=== PATIENT | female | born 1985 | race Two or more races ===

== ENCOUNTER 2018-07-08 20:10 | Emergency (ER) | payer BC ==
[~2018-07-08] VITALS: Ht 170.2 cm; Wt 88.5 kg
--- NOTE | 2018-07-08 20:30 | NUR ---
Pt came to emergency dept. complaining of feeling, "dehydrated." Pt denies any nausea, vomitting, or diarrhea. Pt states she is 27 weeks . Pt AAXO4. Respirations even and unlabored. Pt ambulated to bed 10. Pt put on the monitor and pending eval from ER MD.
--- NOTE | 2018-07-08 20:45 | NUR ---
Pt ambulated to bathroom and urine same obtained. Endoscope Technician at bedside. Labs sent.
[2018-07-08] MEDS ORDERED: IV NS 0.9% 1,000 ML BAG IV ONE (21:00)
[2018-07-08 21:04] LABS: APPEARANCE,URINE Slightly Cloudy (CLEAR); BASOPHILS # (AUTO) 0.1 /CMM (0.0-0.2); BILIRUBIN,URINE Negative (NEGATIVE); BLOOD, URINE Negative Ery/uL (NEGATIVE); COLOR,URINE Yellow (YELLOW); EOSINOPHILS % (AUTO) 0.9 % (0.0-6.0); HEMATOCRIT 36 % (33-45); HEMOGLOBIN 11.7 g/dL (11.5-14.8); KETONES,URINE Trace (NEGATIVE); LEUKOCYTE ESTERASE ,URINE Trace (NEGATIVE); LYMPHOCYTES # (AUTO) 1.9 /CMM (0.8-4.8); LYMPHOCYTES % (AUTO) 22.4 % (20.0-44.0); MEAN CORPUSCULAR HGB CONC 33 g/dl (31.0-36.0); MEAN CORPUSCULAR VOLUME 79 fL (82-100); MONOCYTES # (AUTO) 0.8 /CMM (0.1-1.30); MONOCYTES % (AUTO) 8.9 % (2.0-12.0); NEUTROPHILS # (AUTO) 5.8 /CMM (1.8-8.9); NEUTROPHILS % (AUTO) 66.8 % (43.0-81.0); NITRITE, URINE Negative (NEGATIVE); PLATELET COUNT (AUTO) 219 /CMM (150-450); PROTEIN,URINE Negative (NEGATIVE); RED BLOOD CELL COUNT(AUTO) 4.56 MIL/uL (4.0-5.2); UGLUCOSE Negative (NEGATIVE); UROBILINOGEN,URINE 0.2 EU/dL (0.2); WHITE BLOOD COUNT (AUTO) 8.7 K/uL (4.3-11.0)
[2018-07-08 21:11] LABS: CALCIUM, SERUM 8.5 mg/dL (8.5-10.1); CREATININE 0.7 mg/dL (0.6-1.3); POTASSIUM 3.8 mmol/L (3.5-5.1)
[2018-07-08 21:18] LABS: ALBUMIN 3.1 g/dL (3.4-5.0); BILIRUBIN,DIRECT 0.1 mg/dL (0.0-0.2); BILIRUBIN,TOTAL 0.2 mg/dL (0.2-1.0)
[2018-07-08 21:19] LABS: RBC,URINE 0-2 /HPF (0-2)
[2018-07-08 21:20] LABS: BACTERIA,URINE Few /HPF (None Seen); SQUAMOUS EPITHELIAL CELL,UR Moderate /HPF (None Seen)
[2018-07-08 22:24] VITALS: BP 106/74
--- NOTE | 2018-07-08 22:25 | NUR ---
Patient discharged to home in stable condition. Written and verbal after care instructions given. Patient verbalizes understanding of instruction. IV removed. Catheter intact and site benign. Pressure and 4x4 applied to site. No bleeding noted. Pt ambulatory w/ steady gait, resp even & unlabored, denies any pain, no N/V w/ no acute distress noted.
== END 2018-07-08 22:25 | disposition home or self-care (01) ==
LOC: ER 20:13
DX: O23.41 Unspecified infection of urinary tract in pregnancy, first trimester (principal); E86.0 Dehydration; Z3A.12 12 weeks gestation of pregnancy; Z86.19 Personal history of other infectious and parasitic diseases; Z60.2 Problems related to living alone
CPT/HCPCS: 36415; 80048; 80076; 81001; 84702; 85025; 87804 ×2; 96360; 99283; A4606; J7030; 81000-TC; 87400

== ENCOUNTER 2018-07-14 15:09 | Emergency (ER) | payer BC ==
[~2018-07-14] VITALS: Ht 170.2 cm; Wt 87.5 kg
[2018-07-14 15:22] VITALS: BP 124/72
--- NOTE | 2018-07-14 15:23 | NUR ---
PT BIB SELF C/O "I'M FEELING DEHYDRATED AGAIN" FELT LIKE SHE WAS GOING TO "PASS OUT", PT IS AAOX4, NOT IN RESPIRATORY DISTRESS, V/S STABLE, KEPT RESTED AND COMFORTABLE, AWAITING ER MD FOR EVAL.
--- NOTE | 2018-07-14 15:30 | NUR ---
SEEN AND EXAMINED BY SANTOS ZAMBRANO
[2018-07-14] MEDS ORDERED: IV NS 0.9% 1,000 ML BAG IV ONE (16:00)
--- NOTE | 2018-07-14 16:07 | NUR ---
URINE SPECIMEN COLLECTED AND SENT TO LAB.
[2018-07-14 16:10] LABS: APPEARANCE,URINE Clear (CLEAR); BILIRUBIN,URINE Negative (NEGATIVE); BLOOD, URINE Negative Ery/uL (NEGATIVE); COLOR,URINE Yellow (YELLOW); KETONES,URINE Trace (NEGATIVE); LEUKOCYTE ESTERASE ,URINE Trace (NEGATIVE); NITRITE, URINE Negative (NEGATIVE); PH,URINE 5.5 (5.0-8.0); PROTEIN,URINE Trace mg/dl (NEGATIVE); UGLUCOSE Negative (NEGATIVE); UROBILINOGEN,URINE 0.2 EU/dL (0.2)
[2018-07-14 16:39] LABS: BACTERIA,URINE Few /HPF (None Seen); CALCIUM OXALATE CRYSTALS,UR Few /HPF (None Seen); RBC,URINE 0-2 /HPF (0-2); SQUAMOUS EPITHELIAL CELL,UR Few /HPF (None Seen)
--- NOTE | 2018-07-14 16:49 | NUR ---
Patient discharged to home in stable condition. Written and verbal after care instructions given. Patient verbalizes understanding of instruction.
== END 2018-07-14 16:51 | disposition home or self-care (01) ==
LOC: ER 15:12
DX: O26.891 Other specified pregnancy related conditions, first trimester (principal); E86.0 Dehydration; Z86.19 Personal history of other infectious and parasitic diseases; Z60.2 Problems related to living alone; Z3A.13 13 weeks gestation of pregnancy
CPT/HCPCS: 81000-TC; 87086-TC; J7030

== ENCOUNTER 2020-01-26 21:13 | Emergency (ER) | payer BC ==
[~2020-01-26] VITALS: Ht 167.6 cm; Wt 90.7 kg
[2020-01-26 21:24] VITALS: BP 98/57
[2020-01-26] MEDS ORDERED: ACETAMINOPHEN ES 500 MG TABLET ONE (23:00)
[2020-01-26] MEDS ORDERED: ACETAMINOPHEN ES 500 MG TABLET PO ONE (23:00)
--- NOTE | 2020-01-26 23:11 | NUR ---
Patient discharged to home in stable condition. Written and verbal after care instructions given. Patient verbalizes understanding of instruction. Pt ambulatory with a steady gait
--- NOTE | 2020-01-27 09:15 | NUR ---
PATIENT CALLED AND INFORMED OF RESULT AND TO FOLLOW CDC GUIDELINES
== END 2020-01-26 23:13 | disposition home or self-care (01) ==
LOC: ER 21:18
DX: U07.1 COVID-19 (principal); R51 Headache; Z86.19 Personal history of other infectious and parasitic diseases
CPT/HCPCS: 71045; 99284; C9803; U0003

== ENCOUNTER 2020-05-16 14:03 | Emergency (ER) | payer SELFPAY ==
[~2020-05-16] VITALS: Ht 167.6 cm; Wt 91.6 kg
[2020-05-16 14:12] VITALS: BP 116/62
--- NOTE | 2020-05-16 16:32 | NUR ---
Patient discharged to home in stable condition. Written and verbal after care instructions given. Patient verbalizes understanding of instruction.
== END 2020-05-16 16:32 | disposition home or self-care (01) ==
LOC: ER 14:04
DX: M54.2 Cervicalgia (principal); R07.89 Other chest pain; M54.5 Low back pain; Z98.890 Other specified postprocedural states; Z60.2 Problems related to living alone; V49.59XA Passenger injured in collision with other motor vehicles in traffic accident, initial encounter; Y93.89 Activity, other specified; Y92.413 State road as the place of occurrence of the external cause; Y99.8 Other external cause status
CPT/HCPCS: 71045-TC; 72074-TC; 72100-TC; 72125-TC

== ENCOUNTER 2020-07-04 09:05 | Emergency (ER) | payer BC, MEDICAID ==
[~2020-07-04] VITALS: Ht 170.2 cm; Wt 91.6 kg
[2020-07-04 09:05] VITALS: BP 127/82
== END 2020-07-04 10:18 | disposition home or self-care (01) ==
LOC: ER 09:07
DX: R07.89 Other chest pain (principal); Z60.2 Problems related to living alone
CPT/HCPCS: 71100-TC

== ENCOUNTER 2020-09-13 23:24 | Emergency (ER) | payer BC, OTHER ==
[~2020-09-13] VITALS: Ht 170.2 cm; Wt 91.6 kg
[2020-09-13 23:25] VITALS: BP 122/68
--- NOTE | 2020-09-14 00:02 | NUR ---
RADIOLOGY AT BEDSIDE FOR XRAY
[2020-09-14] MEDS ORDERED: IBUP-1957 PO (00:21)
--- NOTE | 2020-09-14 00:26 | NUR ---
Patient discharged to home in stable condition. Written and verbal after care instructions given. Patient verbalizes understanding of instruction.
== END 2020-09-14 00:28 | disposition home or self-care (01) ==
LOC: ER 23:27
DX: S63.591A Other specified sprain of right wrist, initial encounter (principal); W01.0XXA Fall on same level from slipping, tripping and stumbling without subsequent striking against object, initial encounter; Y93.89 Activity, other specified; Y92.89 Other specified places as the place of occurrence of the external cause; Y99.8 Other external cause status
CPT/HCPCS: 73110

== ENCOUNTER 2021-09-04 20:47 | Emergency (ER) | payer OTHER ==
[~2021-09-04] VITALS: Ht 170.2 cm; Wt 85.7 kg
[~2021-09-04 20:47] MED LIST: IBUP-1957 PO
--- NOTE | 2021-09-04 21:14 | NUR ---
BIBSELF C/O RIGHT SIDED ABD PAIN RAD TO RIGHT FLANK AREA SINCE THE AM . PT A/OX4. TOLERATING R/A WELL WITH NO SOB. CONNECTED PT TO POX AND MONITOR
--- NOTE | 2021-09-04 21:15 | NUR ---
URINE COLLECTED AND SENT TO LAB
[2021-09-04] MEDS ORDERED: KETOROLAC TROMETHAMINE 15 MG/ML VIAL ONE (21:44)
[2021-09-04] MEDS ORDERED: MAG HYDROX/AL HYDROX/SIMETH 30 ML UDC ONE (21:44)
[2021-09-04] MEDS ORDERED: ONDANSETRON HCL/PF 4 MG/2 ML VIAL ONE (21:44)
[2021-09-04] MEDS ORDERED: FAMOTIDINE/PF INJ 20 MG/2 ML VIAL IV ONE ×2 (21:44→22:00)
[2021-09-04] MEDS ORDERED: MAG HYDROX/AL HYDROX/SIMETH 30 ML UDC PO ONE (22:00)
[2021-09-04] MEDS ORDERED: KETOROLAC TROMETHAMINE INJ 30 MG/ML VIAL IV ONE (22:00)
[2021-09-04] MEDS ORDERED: ONDANSETRON HCL/PF 4 MG/2 ML VIAL IVP ONE (22:00)
[2021-09-04] MEDS ORDERED: IV NS 0.9% 1,000 ML BAG IV ONE (22:00)
--- NOTE | 2021-09-04 22:05 | NUR ---
RAC #20G S/L ; BLOOD COLLECTED AND SENT TO LAB
[2021-09-04 22:07] LABS: BASOPHILS % (AUTO) 0.3 % (0.0-2.0); EOSINOPHILS % (AUTO) 0.1 % (0.0-6.0); HEMATOCRIT 40 % (33-45); HEMOGLOBIN 12.8 g/dL (11.5-14.8); LYMPHOCYTES # (AUTO) 0.1 K/uL (0.8-4.8); LYMPHOCYTES % (AUTO) 1.7 % (20.0-44.0); MEAN CORPUSCULAR HGB CONC 32 g/dl (31.0-36.0); MEAN CORPUSCULAR VOLUME 82 fL (82-100); MONOCYTES # (AUTO) 0.5 K/uL (0.1-1.30); MONOCYTES % (AUTO) 9.2 % (2.0-12.0); NEUTROPHILS # (AUTO) 4.4 K/uL (1.8-8.9); NEUTROPHILS % (AUTO) 88.7 % (43.0-81.0); PLATELET COUNT (AUTO) 137 K/uL (150-450); RED BLOOD CELL COUNT(AUTO) 4.86 MIL/uL (4.0-5.2)
[2021-09-04 22:08] LABS: BILIRUBIN,URINE NEGATIVE (NEGATIVE); COLOR,URINE YELLOW (YELLOW); LEUKOCYTE ESTERASE ,URINE SMALL (NEGATIVE); NITRITE, URINE NEGATIVE (NEGATIVE); PROTEIN,URINE TRACE mg/dl (NEGATIVE); UGLUCOSE NEGATIVE (NEGATIVE); UROBILINOGEN,URINE 0.2 EU/dL (0.2)
[2021-09-04 22:12] LABS: BACTERIA,URINE 1+ /HPF (None Seen); RBC,URINE NONE SEEN /HPF (0-2); SQUAMOUS EPITHELIAL CELL,UR Few /HPF (None Seen)
--- NOTE | 2021-09-04 22:40 | NUR ---
PT TAKEN TO CT VIA KRISTOPHER
--- NOTE | 2021-09-04 22:49 | NUR ---
PT RETURNED TO ER BED [address]
--- NOTE | 2021-09-04 23:00 | NUR ---
US TECH AT PT'S BEDSIDE
[2021-09-04 23:32] LABS: ALBUMIN 3.4 g/dL (3.4-5.0); BILIRUBIN,DIRECT 0.2 mg/dL (0.0-0.2); BILIRUBIN,TOTAL 0.7 mg/dL (0.2-1.0); CALCIUM, SERUM 8.2 mg/dL (8.5-10.1); CREATININE 0.9 mg/dL (0.6-1.3); POTASSIUM 3.4 mmol/L (3.5-5.1); TOTAL PROTEIN, SERUM 6.7 g/dL (6.4-8.2)
--- NOTE | 2021-09-04 23:37 | NUR ---
CALLED HECTOR FOR IMAGING READ
[2021-09-05] MEDS ORDERED: CEFOXITIN 2 G in IV NS 0.9% 100 ML IV SCH (00:30)
--- NOTE | 2021-09-05 00:30 | NUR ---
COVID ANTIGEN SWAB COLLECTED AND SENT TO LAB
--- NOTE | 2021-09-05 00:40 | NUR ---
YOUTH SPECIALIST AT PT'S BEDSIDE
[2021-09-05] MEDS ORDERED: CEFOXITIN 1 G VIAL ONE ×2 (00:45→00:46)
--- NOTE | 2021-09-05 02:20 | NUR ---
CLINICALS GIVEN TO SHIRA PROMOTIONS ASSOCIATE, OVER THE PHONE
--- NOTE | 2021-09-05 02:54 | NUR ---
100.1 TEMP NOTED, MADE AWARE
--- NOTE | 2021-09-05 02:59 | NUR ---
CLINICALS FAXED TO SHIRA TESTING DIRECTOR
--- NOTE | 2021-09-05 03:59 | NUR ---
SHIRA'S FAX NUMBER: [phone]
--- NOTE | 2021-09-05 04:52 | NUR ---
CEFOXITIN 2MG NOT AVAILABLE AT THIS TIME. WILL F/U WITH PHARMACY IN THE MORNING
--- NOTE | 2021-09-05 05:12 | NUR ---
PER DENZEL AT TRANSFER CENTER, PATIENT IS ACCEPTED AT [facility] BY GILDA GROVES. # FOR REPORT: [phone] DENZEL'S PHONE NUMBER: [phone]
[2021-09-05 05:26] VITALS: BP 106/64
--- NOTE | 2021-09-05 05:39 | NUR ---
[facility] ETA: [phone]
--- NOTE | 2021-09-05 05:48 | NUR ---
REPORT GIVEN TO COURTNEY VIDAL FROM [facility]
--- NOTE | 2021-09-05 06:53 | NUR ---
PT REQUESTED TO GIVE CAR KEYS TO ART (). CAR KEYS AT NURSING STATION FOR TO PICKUP
--- NOTE | 2021-09-05 08:15 | NUR ---
PATIENT TRANSFERED TO [facility] VIA [facility]BULANCE. REPORT GIVEN TO AMBULANCE STAFF. KEYS HANDED TO PATIENT.
== END 2021-09-05 08:20 | disposition short-term general hospital (02) ==
LOC: ER 20:49
DX: K35.80 Unspecified acute appendicitis (principal); N39.0 Urinary tract infection, site not specified; R11.2 Nausea with vomiting, unspecified; Z20.822 Contact with and (suspected) exposure to COVID-19; E87.6 Hypokalemia; Z86.19 Personal history of other infectious and parasitic diseases; G35 Multiple sclerosis
CPT/HCPCS: 36415 ×2; 74176; 76705; 80048; 80076; 81001; 83605; 83690; 84703; 85025; 87040 ×2; 87086; 87426; 96365; 96367; 99291; C9803; J0694 ×3; J1885; J2405; J3490; J7030 ×2